=== PATIENT | male | born 1985 | race Caucasian/White ===

== ENCOUNTER 2017-03-02 17:59 | Emergency (ER) | payer OTHER ==
[2017-03-02 19:22] VITALS: BP 135/79
== END 2017-03-02 19:22 | disposition home or self-care (01) ==
LOC: ED 17:59
DX: S51.811A Laceration without foreign body of right forearm, initial encounter (principal); W26.9XXA Contact with unspecified sharp object(s), initial encounter; Y93.89 Activity, other specified; Y99.8 Other external cause status; Y92.89 Other specified places as the place of occurrence of the external cause
CPT/HCPCS: J2001; Q0092

== ENCOUNTER 2017-12-22 11:07 | Emergency (ER) | payer OTHER ==
[~2017-12-22] VITALS: Ht 175.3 cm; Wt 83.0 kg
[2017-12-22 11:14] VITALS: Ht 175.3 cm; Wt 83.0 kg
[2017-12-22 13:14] VITALS: BP 150/97
== END 2017-12-22 13:14 | disposition home or self-care (01) ==
LOC: ED 11:07
DX: S01.01XA Laceration without foreign body of scalp, initial encounter (principal); F20.9 Schizophrenia, unspecified; W20.8XXA Other cause of strike by thrown, projected or falling object, initial encounter; Y93.55 Activity, bike riding; Y92.89 Other specified places as the place of occurrence of the external cause; Y99.8 Other external cause status
CPT/HCPCS: 90715